=== PATIENT | male | born 1990 | race African-American/Black ===

== ENCOUNTER 2018-08-20 15:45 | Emergency (ER) | payer MEDICAID | END 2018-08-20 16:35 | disposition left against medical advice (07) | LOC: ER 15:45 | DX: Z53.21 Procedure and treatment not carried out due to patient leaving prior to being seen by health care provider (principal) ==

== ENCOUNTER 2018-08-20 18:22 | Emergency (ER) | payer MEDICAID ==
[~2018-08-20] VITALS: Ht 185.4 cm; Wt 79.0 kg
[2018-08-20] MEDS ORDERED: IBUPROFEN 600MG TABLET PO ONE (20:45)
[2018-08-20] MEDS ORDERED: METHOCARBAMOL 500MG TABLET PO ONE (20:45)
[2018-08-20 21:41] VITALS: BP 120/80
== END 2018-08-20 21:30 | disposition home or self-care (01) ==
LOC: ER 18:22
DX: S16.1XXA Strain of muscle, fascia and tendon at neck level, initial encounter (principal); S29.012A Strain of muscle and tendon of back wall of thorax, initial encounter; F12.10 Cannabis abuse, uncomplicated; V43.52XA Car driver injured in collision with other type car in traffic accident, initial encounter; Y93.89 Activity, other specified; Y92.488 Other paved roadways as the place of occurrence of the external cause
CPT/HCPCS: 99283